=== PATIENT | female | born 1995 | race Caucasian/White ===

== ENCOUNTER → 2018-04-12 | Day surgery (SDC) | payer OTHER ==
[~2018-04-12] MED LIST: LIDOCAINE 1% INJ-PF (10 MG/ML) 30 ML SDV ONE
--- NOTE | 2018-04-12 11:22 | RADIOLOGY REPORT (SQ) ---
EXAM DESCRIPTION: ARTHRO HIP INJ W/ANESTHESIA; FLUORO/NEEDLE PLACEMENT COMPLETED DATE/TIME: 04/12/2018 9:38 am REASON FOR STUDY: LFFT HIP PAIN COMPARISON: None. FLUOROSCOPY TIME: 7 seconds. 1 images saved to PACS. LIMITATIONS: None. PROCEDURE: Procedure, risks, benefits and alternatives explained to patient who then gave written c onsent. The left hip was marked and a time-out was called for correct marking verification. Entry s ite marked using fluoroscopic guidance. Hip prepped and draped using sterile technique. Local anes thesia achieved using 1% lidocaine injection. Hypodermic needle introduced into the joint space und er direct fluoroscopic visualization. Non-ionic contrast instilled to confirm intra-articular positi on. Dilute gadolinium solution then injected. Needle removed and entry site covered with sterile b andage. No immediate complications noted. TECHNIQUE: Digital images acquired during fluoroscopy and stored on PACS. Patient immediately take n to the MR suite for additional imaging. INJECTION LOCATION: Left hip. CONTRAST TYPE AND AMOUNT: 1 mL Isovue and 9 mL Prohance/Saline mixture. IMPRESSION: SUCCESSFUL NEEDLE PLACEMENT AND INJECTION FOR LEFT HIP MR ARTHROGRAM. COMMENT: Quality ID [id number]: Final reports for procedures using fluoroscopy that document radiation exp osure indices, or exposure time and number of fluorographic images (if radiation exposure indices are not available) TECHNICAL DOCUMENTATION: JOB ID: [id number] [employer]- All Rights Reserved Reading location - IP/workstation name: [email or web address]
--- NOTE | 2018-04-12 11:22 | RADIOLOGY REPORT (SQ) ---
EXAM DESCRIPTION: ARTHRO HIP INJ W/ANESTHESIA; FLUORO/NEEDLE PLACEMENT COMPLETED DATE/TIME: 04/12/2018 9:38 am REASON FOR STUDY: LFFT HIP PAIN COMPARISON: None. FLUOROSCOPY TIME: 7 seconds. 1 images saved to PACS. LIMITATIONS: None. PROCEDURE: Procedure, risks, benefits and alternatives explained to patient who then gave written c onsent. The left hip was marked and a time-out was called for correct marking verification. Entry s ite marked using fluoroscopic guidance. Hip prepped and draped using sterile technique. Local anes thesia achieved using 1% lidocaine injection. Hypodermic needle introduced into the joint space und er direct fluoroscopic visualization. Non-ionic contrast instilled to confirm intra-articular positi on. Dilute gadolinium solution then injected. Needle removed and entry site covered with sterile b andage. No immediate complications noted. TECHNIQUE: Digital images acquired during fluoroscopy and stored on PACS. Patient immediately take n to the MR suite for additional imaging. INJECTION LOCATION: Left hip. CONTRAST TYPE AND AMOUNT: 1 mL Isovue and 9 mL Prohance/Saline mixture. IMPRESSION: SUCCESSFUL NEEDLE PLACEMENT AND INJECTION FOR LEFT HIP MR ARTHROGRAM. COMMENT: Quality ID 145: Final reports for procedures using fluoroscopy that document radiation exp osure indices, or exposure time and number of fluorographic images (if radiation exposure indices are not available) TECHNICAL DOCUMENTATION: JOB ID: [id number] [employer]- All Rights Reserved Reading location - IP/workstation name: [email or web address]
--- NOTE | 2018-04-12 11:28 | RADIOLOGY REPORT (SQ) ---
EXAM DESCRIPTION: MRI LT LOWER JOINT WITH COMPLETED DATE/TIME: 04/12/2018 10:32 am REASON FOR STUDY: LEFT HIP PAIN COMPARISON: None. TECHNIQUE: Post arthrogram imaging is performed using T1 and T1 and T2 fat saturated sequences of th e pelvis and specific hip of interest. LIMITATIONS: Patient motion. FINDINGS: JOINT DISTENSION: Adequate. No loose body. BONE MARROW: No edema. No marrow replacement. FEMORAL HEAD, NECK, AND ACETABULUM: No occult fracture. No osteophytes or subchondral cysts. Normal s phericity of femoral head/neck junction. No acetabular dysplasia. No evidence of femoroacetabular imp ingement. PUBIC RAMI AND ISCHIUM: No occult fracture. SACRUM AND GEMMA: SI joints normal in signal. No occult fracture. EFFUSIONS: None. LABRUM AND CARTILAGE: No labral tear. Cartilage of normal thickness without delamination. MUSCLES AND SOFT TISSUES: Adductors and piriformis normal. Abductors and greater trochanteric bursa n ormal without edema or fluid. Iliopsoas bursa without fluid. Hamstring attachments without edema or t ear. PELVIC SOFT TISSUES: No masses or adenopathy. SCIATIC NERVE: Identified without masses. OTHER: No other significant finding. IMPRESSION: NORMAL MRI ARTHROGRAM OF THE HIP. TECHNICAL DOCUMENTATION: JOB ID: [id number] [employer]- All Rights Reserved Reading location - IP/workstation name: [email or web address]
== END ==
LOC: RAD 08:51
PROVIDERS: ATTEND Family Medicine
DX: G89.29 Other chronic pain (principal); M25.552 Pain in left hip
CPT/HCPCS: 73722; 77002; 27095; A9576; J3490